=== PATIENT | female | born 1990 | race Two or more races ===

== ENCOUNTER 2023-05-24 11:57 | Outpatient (REF) | payer OTHER, SELFPAY ==
[2023-05-24 12:11] LABS: MANUAL DIFF FLAG NO
[2023-05-24 12:25] LABS: Basophils Absolute Auto 0.1 X10*3/uL (0.0-0.2); Basophils Percent Auto 0.9 % (0-2); Eosinophils Absolute Auto 0.7 X10*3/uL (0.0-0.4); Eosinophils Percent Auto 10.1 % (0-4); Hematocrit 39.9 % (37.0-47.0); Hemoglobin 12.9 g/dl (12.0-16.0); Imm Gran Abs Auto 0.02 X10*3/uL (0.00-0.03); Imm Gran Pct Auto 0.3 % (0.0-0.4); Mean Corpuscular HGB Conc 32.3 g/dl (31.0-35.0); Mean Corpuscular Hemoglobin 28.7 pg (27.0-33.0); Mean Corpuscular Volume 88.9 fL (80.0-98.0); Mean Platelet Volume 8.5 fL (9.4-12.3); Monocytes Absolute Auto 0.4 X10*3/uL (0.1-1.2); Monocytes Percent Auto 6.1 % (2-11); Neutrophils Absolute Auto 3.4 x10*3/uL (2.0-8.3); Neutrophils Percent Auto 52.6 % (45-73); Platelet Count 283 X10*3/uL (160-400); Red Blood Count 4.49 X10*6/uL (4.20-5.50); Red Cell Distribution Width 12.5 % (11.0-16.0); White Blood Count 6.5 X10*3/uL (4.8-10.8)
[2023-05-24 12:34] LABS: Estimated Average Glucose 108 mg/dL; Hemoglobin A1c % 5.4 %
[2023-05-24 13:05] LABS: Alanine Aminotransferase 76 U/L (0-31); Albumin Level 3.7 g/dL (3.5-5.0); Alkaline Phosphatase 132 U/L (39-117); Anion Gap 10 (12-20); Aspartate Amino Transferase 57 U/L (5-31); Bilirubin Total 0.4 mg/dL (0.0-1.0); Blood Urea Nitrogen 11 mg/dL (9-16); Calcium 9.2 mg/dL (8.4-10.2); Carbon Dioxide 28 mmol/L (22-29); Chloride 109 mmol/L (96-108); Estimated Glomerular Filt Rate > 60; Glucose Random 82 mg/dL (60-115); Potassium 4.2 mmol/L (3.3-5.1); Sodium 143 mmol/L (135-145); Total Protein 6.7 g/dL (6.5-8.0)
[2023-05-24 13:23] LABS: TSH reflex Free T4 1.73 uIU/mL (0.32-4.0)
[2023-05-24 13:36] LABS: Folate 15.4 ng/mL (> or = 4.0); Vitamin B12 747 pg/mL (200-900)
== END 2023-05-24 11:58 | disposition home or self-care (01) ==
LOC: HO.LAB 11:57
PROVIDERS: PCP Nurse Practitioner Family; Visit Provider Nurse Practitioner Family
DX: O24.419 Gestational diabetes mellitus in pregnancy, unspecified control (principal)
CPT/HCPCS: 36415; 80053; 82306; 82607; 82746; 83036; 84443; 85025

== ENCOUNTER 2023-06-13 10:37 | Outpatient (AMB) | payer OTHER, SELFPAY ==
[2023-06-13 10:39] VITALS: BP 134/70; PULSE 68; O2SAT 97; BMI 38.7
--- NOTE | 2023-06-13 10:39 | A.OFFPC_ITS ---
Vital Signs 06/13/23 10:39 Height 5 ft 7 in Weight 247 lb BMI 38.7 BP 134/70 Blood Pressure Location Lt brachial Position Sitting Pulse 68 Pulse Source Pulse Oximeter Temp Source Skin Pulse Oximetry (%) 97 Oxygen Delivery Method Room Air Intake Visit Reasons: Annual Exam Intake Note: Patient is here today for a physical. Allergies peanut [Peanut] Allergy (Severe, Verified 06/13/23 10:49) THROAT SWELLING shrimp Allergy (Severe, Verified 06/13/23 10:49) THROAT SWELLING Medication List - Last Reconciled 06/13/23 by TREMAINE Carlin albuterol sulfate 90 mcg/actuation (ProAir HFA) 2 puffs inhalation Q4-6H PRN cholecalciferol (vitamin D3) 25 mcg PO DAILY vit,[id number] 29 mg iron- 1 mg (Prenatabs Rx) 1 tab PO DAILY Tobacco use date assessed: 06/13/23 Dental Screening Dental Screen Date: 06/13/23 Did you have a dental visit in the last 12 months?: No Did you have a dental problem in the last 6 months where you did not have access to dental care?: No Was dental information given to patient?: Patient has dentist HPI Annual Exam HPI Details Patient is a 33-year-old female who presents today for physical exam. Medical history significant for gestational diabetes-A1c 5.4 04/2023-gave to a baby girl 05/08/2023 in-not on insulin anymore, low vitamin-D level, dyspnea on exertion-better after giving to her child, elevated LFTs-has order for hepatitis profile and abdominal ultrasound. Patient reports normal Pap smear 4 years ago at [facility] gynecology, next Pap smear is due next year per patient. Up-to-date with tetanus vaccine. Patient will call for an eye exam and dentist visit. Addition, patient reports intermittent headaches for very long time now, she reports 1 headache usually weekly with sensitivity to light, feels better in a dark room, reports taking Tylenol or ibuprofen with very minimal improvement. Reports that these headaches are not bad lately. Reports she sleeps off this headaches. Reports being on medication for headache in the past. Denies any other neurological symptoms. No shortness of breath or chest pain. [facility] Medical History Encounter to establish care Umbilical hernia Surgical History H/O dilation and curettage H/O hand surgery History of appendectomy Previous section Family History Mother No problems noted. Social History Housing: House Patient Tobacco Use Status: Never used Tobacco service: No Current occupational status: employed Cognitive needs: No Hearing needs: No Vision needs: No Questionnaire PHQ-9 Over the last 2 weeks, how often have you been bothered by any of the following problems? 1. Little interest or pleasure in doing things: not at all 2. Feeling down, depressed, or hopeless: not at all 3. Trouble falling or staying asleep, or sleeping too much: not at all 4. Feeling tired or having little energy: not at all 5. Poor appetite or overeating: not at all 6. Feeling bad about yourself - or that you are a failure or have let yourself or your family down: not at all 7. Trouble concentrating on things, such as reading the newspaper or watching television: not at all 8. Moving or speaking so slowly that other people could have noticed. Or the opposite - being so fidgety or restless that you have been moving around a lot more than usual: not at all 9. Thoughts that you would be better off or of hurting yourself in some way: not at all Total score: 0 Depression Screening Interpretation: Negative 28517 - PHQ-9 Billing: Yes Source: Developed by Drs. Archie Mar, Rubi Garcia, Yoseph Brewster and colleagues, with an educational vipul from [employer]. Thrive Questionnaire Date Thrive assessed: 06/13/23 I am a: Patient What is your living situation today?: I have a steady place to live Within the past 12 months, did the food you bought not last and you didn't have the money to get more?: Never true Within the past 12 months, did you worry whether your food would run out before you got money to buy more?: Never true Currently or been in a relationship where the following occur: no concerns reported AUDIT C Alcohol Use Questionnaire (AUDIT-C) 1. How often do you have a drink containing alcohol?: Never 2. How many drinks containing alcohol do you have on a typical day when you are drinking?: 1 or 2 3. How often do you have six or more drinks on one occasion?: Never Total Score: 0 Score Reviewed/Action Taken: No FIFI-7 AMB Questionnaire FIFI-7 Date FIFI - 7 assessed: 06/13/23 Feeling nervous, anxious, or on edge: 0 = Not at all Not being able to stop or control worryin = Not at all Worrying too much about different things: 0 = Not at all Trouble relaxin = Not at all Being so restless that it is hard to sit still: 0 = Not at all Becoming easily annoyed or irritable: 0 = Not at all Feeling afraid as if something awful might happen: 0 = Not at all Total FIFI-7 score (0-4 normal; 5-9 mild; 10-14 moderate; 15-21 severe): 0 Source: Developed by Drs. Archie Mar, Rubi Garcia, Yoseph Brewster and colleagues, with an educational vipul from [employer]. FIFI-7 Assessment Billing FIFI-7 Assessment Tool: FIFI-7 Assessment 01197 Review of Systems Const Denies body aches, Denies chills, Denies fever(s) and Reports headache(s) (Intermittent) Eyes Denies change in vision ENT Denies dizziness, Denies otalgia, Reports headache(s) (Intermittent), Denies nasal discharge, Denies sinus pain and Denies sore throat Card Denies chest pain, Denies edema, Denies lightheadedness and Denies dyspnea Resp Denies cough, Denies dyspnea and Denies wheezing GI Denies abdominal pain, Denies constipation, Denies diarrhea, Denies nausea and Denies vomiting Denies dysuria Musc Denies myalgias Skin/Breast Denies rash Neuro Denies dizziness and Reports headache(s) (Intermittent) Aller/Immun Denies wheezing Physical exam (Primary Care) Vital Signs: Last Vital Signs Pulse 68 06/13/23 10:39 BP 134/70 06/13/23 10:39 Pulse Ox 97 06/13/23 10:39 Oxygen Delivery Method Room Air 06/13/23 10:39 BMI result Body Mass Index 38.7 Tobacco/Smoking Status: Tobacco use Status Tobacco use date assessed 06/13/23 06/13/23 10:40 Patient Tobacco Use Status Never used Tobacco 06/13/23 10:40 PHQ-9: PHQ-9 Score PHQ-9: Total score 0 06/13/23 10:40 Depression Screening Interpretation: Negative Thrive Assessment: Date of Thrive Assessment Date Thrive assessed 06/13/23 06/13/23 10:40 Currently or been in a relationship where the following occur: no concerns reported Const General: cooperative and no acute distress Orientation/consciousness: patient oriented x3 HENMT Head: Yes normocephalic and Yes atraumatic Ears: TM's normal bilaterally Face and sinus: Yes sinuses nontender Mouth: oropharynx normal and moist mucous membranes Throat: Yes posterior oropharynx normal Eyes General: appearance normal, both eyes and all related structures Pupils: Equal, round and reactive pupils present EOM: EOMs intact bilaterally Neck Neck: Yes normal visual inspection, Yes full ROM and Yes no lymphadenopathy Thyroid: Thyroid normal Resp Effort & Inspection: normal respiratory effort and able to speak in complete sentences Auscultation: clear to auscultation bilaterally, no crackles, no rales, no rhonchi and no wheezes Cardio Rate: regular rate Rhythm: regular rhythm Heart sounds: S1 normal heart sound present, S2 normal heart sound present and no murmurs GI Palpation (GI): Soft to palpation, not firm, nontender, no guarding, not rigid and no hepatosplenomegaly Auscultation: normal bowel sounds General: No CVA tenderness Back/Spine/Pelvis Back: No CVA tenderness Skin General skin exam: no rashes or lesions noted Neuro General: patient oriented x3 and CN's II-XI intact bilaterally Cranial nerves: Yes Equal, round and reactive pupils present Gait exam (Neuro): Normal gait present Extrem General: Yes full ROM and No edema Assessment and Plan Assessment & Plan (1) Adult general medical exam: Code(s): Z00.00 - Encounter for general adult medical examination without abnormal findings Plan: Repeat in 1 year (2) Elevated LFTs: Code(s): R79.89 - Other specified abnormal findings of blood chemistry Plan: AST 57, ALT 76 04/2023, pending hepatitis blood work and abdominal ultrasound (3) Dyspnea on exertion: Code(s): R06.09 - Other forms of dyspnea Plan: Patient reports that this is improving after giving to her child, she has albuterol inhaler p.r.n. which is helpful (4) Gestational diabetes: Code(s): O24.419 - Gestational diabetes mellitus in , unspecified control Plan: A1c 5.4 04/2023 Continue to monitor (5) Headache: Code(s): R51.9 - Headache, unspecified Plan: Patient is to continue Tylenol 650 mg every 6 hours as needed alternating with ibuprofen 400 mg every 8 hours as needed. Suspect migraine headache. Patient reports that headaches are not that bad lately. Will consider sumatriptan after stopping breast-feeding, patient agreed with the plan. (6) Breast feeding status of mother: Code(s): Z39.1 - Encounter for care and examination of lactating mother Orders: Orders Lipid Panel Today Z00.00 - Encounter for general adult medical examination without abnormal findings Coding Level of Care Code Est Pt Prev Care 18-39y(88382) Diagnoses Adult general medical exam Z00.00 Elevated LFTs R79.89 Dyspnea on exertion R06.09 Gestational diabetes O24.419 Headache R51.9 Breast feeding status of mother Z39.1 Additional Codes FIFI-7 Assessment Billing - FIFI-7 Assessment Tool: FIFI-7 Assessment [id number] ([id number])
== END 2023-06-13 11:06 | disposition home or self-care (01) ==
PROVIDERS: PCP Nurse Practitioner Family; Visit Provider Nurse Practitioner Family
DX: Z00.00 Encounter for general adult medical examination without abnormal findings (principal); R79.89 Other specified abnormal findings of blood chemistry; R06.09 Other forms of dyspnea; R51.9 Headache, unspecified
CPT/HCPCS: 99395

== ENCOUNTER 2023-07-25 10:14 | Outpatient (REF) | payer OTHER, SELFPAY ==
--- NOTE | ~2023-07-25 | US_ITS ---
EXAMINATION: US ABDOMEN LIMITED CLINICAL INFORMATION: Other specified abnormal findings of blood chemistry. COMPARISON: None available. TECHNIQUE: Real-time imaging of the right upper quadrant abdominal viscera. FINDINGS: PANCREAS: Normal. LIVER: The liver is normal in size. The liver contour is normal. There is diffuse increased liver parenchymal echogenicity, consistent with hepatic steatosis. No focal hepatic lesion. There is no intrahepatic biliary duct dilatation seen. GALLBLADDER: Surgically absent. COMMON BILE DUCT: Normal in caliber measuring 0.3 cm in diameter. RIGHT KIDNEY: Normal. No hydronephrosis. No renal calculi or focal parenchymal lesions. The kidney measures 10.5 cm in maximum dimension. FREE FLUID: None. US/US abdomen limited IMPRESSION: Hepatic steatosis. No biliary ductal dilatation.
== END 2023-07-25 10:15 | disposition home or self-care (01) ==
LOC: HO.US 10:14
PROVIDERS: PCP Nurse Practitioner Family; Visit Provider Nurse Practitioner Family
DX: R79.89 Other specified abnormal findings of blood chemistry (principal)
CPT/HCPCS: 76705

== ENCOUNTER 2024-03-07 13:13 | Outpatient (REF) | payer MEDICAID, SELFPAY ==
[2024-03-07 16:28] LABS: Estimated Average Glucose 114 mg/dL; Hemoglobin A1c % 5.6 % (<6.0)
[2024-03-07 16:32] LABS: Appearance Urine Clear; Color Urine Yellow; Glucose Urine UA Negative (Negative); Leukocyte Esterase Urine Negative (Negative); Nitrite Urine Negative (Negative); PH 6.5 (5.0-9.0); Specific Gravity - Urine 1.015 (1.005-1.025); Urine Blood Negative (Negative); Urine Ketones Negative (Negative); Urine Protein Negative (Neg-Trace)
[2024-03-07 16:37] LABS: Bacteria Urine None Seen (None Seen); Hyaline Casts Urine 0-2 /LPF (0-2); RBC Urine 0-2 /HPF (0-2); Squamous Epithelial Cell Urine 0-2 /HPF (0-2); WBC Urine 0-5 /HPF (0-5)
[2024-03-07 18:30] LABS: CT PCR NOT DETECTED (Not Detect.); NG PCR NOT DETECTED (Not Detect.)
[2024-03-07 18:49] LABS: Alanine Aminotransferase 32 U/L (0-31); Alkaline Phosphatase 70 U/L (39-117); Anion Gap 14 (12-20); Aspartate Amino Transferase 20 U/L (5-31); Bilirubin Total 0.4 mg/dL (0.0-1.0); Blood Urea Nitrogen 10 mg/dL (9-16); Calcium 9.6 mg/dL (8.4-10.2); Carbon Dioxide 21 mmol/L (22-29); Chloride 110 mmol/L (96-108); Cholesterol 183 mg/dL (<200); Estimated Glomerular Filt Rate > 60; HDL Cholesterol 37 mg/dL (>40); LDL Cholesterol Calculated 113 mg/dL (<100); Potassium 3.8 mmol/L (3.3-5.1); Sodium 141 mmol/L (135-145); Total Protein 7.1 g/dL (6.5-8.0); Triglycerides 167 mg/dL (<150)
[2024-03-07 18:57] LABS: Glucose Random 59 mg/dL (60-115)
[2024-03-07 18:58] LABS: TSH reflex Free T4 1.93 uIU/mL (0.32-4.0)
[2024-03-08 04:00] LABS: HIV AB/AG Nonreactive (Nonreactive); HIV Num 1 0.12 S/CO (0.00-0.99); ~HepC Num1 0.27 S/CO (0.00-0.79); ~Hepatitis C Antibody Nonreactive (Nonreactive)
[2024-03-11 17:14] LABS: RPR Rapid Plasma Reagin NON-REACTIVE (NON-REACTIVE)
== END 2024-03-07 13:14 | disposition home or self-care (01) ==
LOC: HO.HHCL 13:13
PROVIDERS: Visit Provider General Practice
DX: Z00.00 Encounter for general adult medical examination without abnormal findings (principal); G44.029 Chronic cluster headache, not intractable; Z11.3 Encounter for screening for infections with a predominantly sexual mode of transmission
CPT/HCPCS: 0353U; 36415; 80053; 80061; 81001; 83036; 84443; 86592; 86803; 87389

== ENCOUNTER 2025-04-14 12:44 | Outpatient (REF) | payer OTHER, SELFPAY ==
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
[2025-04-15 03:50] LABS: HBS Num1 8.47 mIU/mL (0-7.99)
[2025-04-15 04:42] LABS: HBS Num2 8.44 mIU/mL (0-7.99); HBS Num3 8.36 mIU/mL (0-7.99); ~Hepatitis B Surface Antibody GRAYZONE (Nonreactive)
== END 2025-04-14 12:45 | disposition home or self-care (01) ==
LOC: HO.HHCL 12:44
PROVIDERS: Visit Provider General Practice
DX: Z00.00 Encounter for general adult medical examination without abnormal findings (principal)
CPT/HCPCS: 36415; 86706

== ENCOUNTER 2025-10-15 12:36 | Outpatient (REF) | payer OTHER, SELFPAY ==
--- NOTE | ~2025-10-15 | MM_ITS ---
EXAMINATION: MM SCREENING DIGITAL BREAST TOMOSYNTHESIS, BILATERAL CLINICAL INFORMATION: Screening. Asymptomatic. COMPARISON: Mammography: Baseline. TECHNIQUE: Digital breast mammography with tomosynthesis is performed in both the craniocaudal and mediolateral oblique views along with computer-aided detection (CAD). FINDINGS: There are scattered areas of fibroglandular density. There are no significant masses, abnormal calcifications, or other abnormalities. MM/MM tomosynthesis screening BI IMPRESSION: No mammographic evidence of malignancy. ASSESSMENT: BI-RADS Category 1: Negative RECOMMENDATION: Routine annual mammography screening. 1 year F/U This examination should not preclude the clinical evaluation of a suspicious palpable abnormality. This patient's information was entered into a reminder system with a target due date for their next mammogram. Electronically signed by: Elaine Casanova DO 10/15/2025 02:21 PM [facility]
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
--- OUTSIDE RECORDS SUMMARY | 2025-10-15 16:47 | XMS_ITS | Clinical Summary ---
Author Organization [facility] Address [address] [place] [phone] Care Team Providers Care Section Forest Fire Warden Name Role Phone Unavailable Primary Care Provider Unavailabl e Social History Tobacco Use Types Packs/Day Years Used Date Smoking Tobacco: Never Assessed Comments Unknown Sex and Gender Information Value Date Recorded Sex Assigned at Not on file Legal Sex Female 5:41 AM EST Gender Identity Not on file Sexual Orientation Not on file Plan of Treatment Health Maintenance Due Date Last Done Comments DTaP,Tdap,and Td Vaccines (1 - Tdap) 2007 Hepatitis B Vaccines (1 of 3 - 19+ 3-dose series) 2007 Cervical Cancer Screening: P ap Smear 2009 HPV Vaccines (1 - 3-dose SCD M series) 2015 HIV Screening 11/28/2023 Hepatitis C Screening 11/28/2023 Social Influencers of Health Screening 11/28/2023 Depression Screening 10/30/2024 COVID-19 Vaccine (1 - 2024-2 6 season) 2025 Influenza Vaccine (#1) 2025 RSV Immunization Adult Patie nts (1 - 1-dose 75+ series) 2063 HIB Vaccines Aged Out No longer eligi ble based on patient's age to complete this topic Hepatitis A Vaccines Aged Out No long er eligible based on patient's age to complete this topic IPV Vaccines Aged Out No longer eligi ble based on patient's age to complete this topic MMR Vaccines Aged Out No longer eligi ble based on patient's age to complete this topic Meningococcal ACWY Vaccine Aged Out N o longer eligible based on patient's age to complete this topic Meningococcal B Vaccine Aged Out No l onger eligible based on patient's age to complete this topic Pneumococcal Vaccine: Pediat rics (0 to 5 Years) and At-Risk Patients (6 to 49 Years) Aged Out No longer eligible b ased on patient's age to complete this topic RSV Immunization Patients Un cher 20 months Aged Out No longer eligible b ased on patient's age to complete this topic Varicella Vaccines Aged Out No longer eligible based on patient's age to complete this topic
--- OUTSIDE RECORDS SUMMARY | 2025-10-15 16:47 | XMS_ITS | Encounter Summary ---
Author Organization [employer] [facility] Address [address] [place] [address] [address] [place] [address] Care Team Providers Care Suction Plate Carrier Cleaner Name Role Phone Olivia Tamez MD Primary Care Provider [phone] Reason for Referral * Imaging (STAT) - Closed Specialty Diagnoses / Procedures Referred By Shanita sawant Referred To Contact Radiology Diagnoses FH: breast cancer in first degree relative when <50 years old Procedures BI Mammogram Screening Tomosynthesis Bilateral Olivia Tamez MD [address] [place] [address] Phone: tel: fax: [address] [phone] Phone: tel: fax: Referral ID Status Reason Start Date Expiration Date Visits Re quested Visits Authorized [id number] Closed 10/08/2025 10/08/2026 1 1 Encounter Details Date Type Department Care Team (Late st Contact Info) Description 10/08/[address] [facility] [address] [place], [place] [phone] Olivia Tamez MD [address] [place], [place] [phone] FH: breast cancer in first degree relative when <50 years old (Primary Dx) Social History Tobacco Use Types Packs/Day Years Used Date Smoking Tobacco: Never Smokeless Tobacco: Never Alcohol Use Standard Drinks/Week Comments Never 0 [...] is your housing situation today? I have akankshacampbell bonilla 02/21/[address] you [...] Don't know 02/26/2024 5: 21 PM EDT documented as of this encounter Plan of Treatment Upcoming Encounters Date Type Department Care Team (Late st Contact Info) Description 10/27/2025 2:00 PM EST Clinical Support [facility] [address] [place] [phone] documented as of this encounter Procedures Procedure Name Priority Date/Time Associated Diagnosis Comments BI MAMMOGRAM SCREENING TOMOSYNTHESIS BILATERAL STAT 10/15/2025 12:50 PM EST FH: breast cancer in first degree relative when <50 years old documented in this encounter Results * BI Mammogram Screening Tomosynthesis Bilateral (10/15/2025 12:50 PM EST) Anatomical Region Laterality Modality Breast Bilateral Mammography 10/15/2025 12:5 0 PM EST Narrative 10/15/2025 2:24 PM EST [facility] [address] [place] [address] Mammography Report Signed Patient: Jane Terrell MR#: [id number] : 1990 Acct:[id number] Age/Sex: 35 / F ADM Date: 10/15/25 Loc: .MAMMO Attending Dr: Olivia Tamez MD Ordering Physician: Olivia Tamez Results: 1Negative Date of Service: 10/15/25 Follow Up: 1 Year From Orig ina Mammogram Procedure(s): MM tomosynthesis screening BI Accession Number(s): [id number] cc: Olivia Tamez Reason For Exam: Z12.31 [...] 10/15/25 1421 DD/ 1250 TD/TT: 10/15/25 1300 Process Validation Engineer: Procedure Note Donotuseinterpreter, Image - 10/15/2025 [facility] [address] [place] [address] Mammography Report Signed Patient: Jane TerrellMR#: [id number] : 1990Acct:[id number] Age/Sex: 35 / FADM Date: 10/15/25 Loc: HO.MAMMO Attending Dr: Olivia Tamez MD Ordering Physician: Gracie Tamezults: 1Negative Date of Service: 10/15/25Follow Up: 1 Year From Orig inal Mammogram Procedure(s): MM tomosynthesis screening BI Accession Number(s): [id number] cc: Olivia Tamez Reason For Exam: Z12.31 [...] by: Elaine Casanova DO 10/15/2025 02:21 PM [facility] Dictated By: Eliane Casanova DO Signed By: <Electronically signed by Elaine Casanova DO in [place]> 10/15/25 1421 DD/ 1250 TD/TT: 10/15/25 1300 Process Validation Engineer: Olivia Tamez MD IMG BI PROCEDURES Final Result documented in this encounter Visit Diagnoses Diagnosis FH: breast cancer in first degree relative when <50 years old- Primary documented in this encounter Additional Health Concerns Assessment Noted Time PHQ-9 Depression Total Score: 17 025 9:49 AM EDT documented as of this encounter Care Teams Suction Plate Carrier Cleaner Relationship Specialty Start Date End Date Olivia Tamez MD [address] [place] [address] PCP - General Family Medicine 02/28/24 documented as of this encounter
== END 2025-10-15 12:37 | disposition home or self-care (01) ==
LOC: HO.MAMMO 12:36
PROVIDERS: PCP General Practice; Visit Provider General Practice
DX: Z12.31 Encounter for screening mammogram for malignant neoplasm of breast (principal); Z80.3 Family history of malignant neoplasm of breast
CPT/HCPCS: 77063; 77067

== ENCOUNTER → 2025-10-15 12:45 | Outpatient (BNV) | payer OTHER, SELFPAY | PROVIDERS: PCP General Practice; Visit Provider Internal Medicine | DX: Z12.31 Encounter for screening mammogram for malignant neoplasm of breast (principal) | CPT/HCPCS: 77063; 77067 ==